=== PATIENT | male | born 1945 | race Caucasian/White ===

== ENCOUNTER 2022-05-11 17:24 | Emergency (ER) | payer MEDICARE, OTHER, SELFPAY ==
[2022-05-11 17:36] VITALS: BP 161/77; PULSE 67; RESP 16; TEMP 36.7; O2SAT 98; BMI 23.8
--- NOTE | 2022-05-11 17:40 | DI.RAD.S_ITS ---
PROCEDURE: XR RIBS LT MIN 3V W CXR1V INDICATIONS: fall hiking, left rib pain TECHNIQUE: 4 views of the left ribs were acquired, along with a single view chest. COMPARISON: None. FINDINGS: Surgical changes and devices: None. Bones and chest wall: No fractures or dislocations. No suspicious bony lesions. Overlying soft tissues appear unremarkable. Lungs and pleura: No pleural effusions or pneumothorax. Lungs appear clear. Mediastinum: Mediastinal contours appear normal. Heart size is normal. IMPRESSION: No obvious displaced left rib fracture is seen. No acute cardiopulmonary pathology. Dictated by: Rickey Rothman M.D. on 05/11/2022 at 17:07 Approved by: Rickey Rothman M.D. on 05/11/2022 at 17:12
--- NOTE | 2022-05-11 17:40 | DI.RAD.S_ITS ---
PROCEDURE: XR WRIST LT MIN 3V INDICATIONS: fall hiking left wrist pain TECHNIQUE: 4 views of the wrist were acquired. COMPARISON: [facility], CR, XR RIBS LT MIN 3V W CXR1V, 05/11/2022, 17:45. FINDINGS: Bones: There is a comminuted mildly impacted fracture of the distal radius, with intra-articular involvement. There is a mildly displaced fracture of the ulnar styloid also seen. Degenerative changes are seen throughout, which are most prominent involving the 1st carpometacarpal joint. Milder degenerative changes are seen elsewhere. Scaphoid view: No navicular fractures are seen. Soft tissues: No suspicious soft tissue calcifications. IMPRESSION: Comminuted intra-articular fracture of the distal radius. Mildly displaced ulnar styloid fracture. Dictated by: Duncan Quiroz M.D. on 05/11/2022 at 18:18 Approved by: Duncan Quiroz M.D. on 05/11/2022 at 18:19
[2022-05-11 21:15] VITALS: O2SAT 98
--- NOTE | 2022-05-11 21:20 | ED.FALL ---
HPI - Fall General Chief Complaint: Fall Stated Complaint: Fall, Lt Wrist and Rib Injury Time Seen by Provider: 05/11/22 21:12 Mode of arrival: Family Vehicle History of Present Illness HPI Narrative: 77-year-old male nonsmoker with noncontributory medical history presents with his in the chief complaint of an accidental, ground level fall resulting in pain to his left wrist and right-sided ribs. He denies any head neck or back pain. His rib pain is worse to palpation with deep breath but he denies any shortness of breath or hemoptysis. He denies any lower extremity injury and states that his left wrist hurts with flexion, extension as well as pronation and supination. He denies any numbness, tingling or weakness. He is activated as a modified trauma given age greater than 65 and suspected injury he states that he was at a local hiking trail and stepped on some uneven ground which caused him to fall over as mentioned Related Data Previous Rx's Medication Instructions Recorded hydrocodone 5 mg-acetaminophen 325 1 tab PO Q4-6H PRN pain #20 tabs 05/11/22 mg tablet Allergies Allergy/AdvReac Type Severity Reaction Status Date / Time codeine Allergy Verified 05/11/22 17:40 Penicillins Allergy Verified 05/11/22 17:40 Review of Systems Review of Systems Narrative: GENERAL: Denies chills, fatigue, malaise, fever, sweats. HEENT: Denies sinus pain, ear pain, sore throat, difficulty swallowing, dizziness. RESPIRATORY: See HPI CARDIOVASCULAR: Denies chest pain, palpitations, orthopnea, edema, GASTROINTESTINAL: Denies nausea, vomiting, abdominal pain, diarrhea, constipation, melena. : Denies dysuria, frequency, incontinence, hematuria, urinary retention. MUSCULOSKELETAL: See HPI SKIN: Denies rash, skin lesions, or other NEUROLOGIC: Denies weakness, headache, numbness, change in speech, confusion, seizures, incoordination. PSYCHIATRIC: No concerning psychosocial issues. 12 point review of systems is negative except for those stated above Patient History Social History Smoking Status: Never smoker Smoking Status: Never smoker alcohol intake frequency: a few times a month Substance Use Type: does not use Exam Narrative Exam Narrative: GENERAL: [77] year old patient appears stated age. Well-developed patient, in mild distress. HEAD: Atraumatic. Normocephalic. EYES: Pupils equal round and reactive. Extraocular motions intact. No scleral icterus. No injection or drainage. ENT: Nose without bleeding, purulent drainage. Throat without erythema, tonsillar hypertrophy or exudate. Airway patent. NECK: Trachea midline. Non tender CARDIOVASCULAR: Regular rate and rhythm without murmurs, gallops, or rubs. Right lower posterior lateral ribs tender to palpate, no subcu emphysema, crepitance, edema or erythema noted RESPIRATORY: Clear to auscultation. Breath sounds equal bilaterally. No wheezes, rales, or rhonchi. GASTROINTESTINAL: Abdomen soft, non-tender, nondistended. EXTREMITIES: Full but painful range of motion of left wrist with minimal swelling. This is closed, isolated and neurovascularly intact BACK: Nontender without deformity or crepitance. No flank tenderness. NEURO: AOx3. SKIN: No rash or erythema of visible areas Initial Vital Signs Initial Vital Signs: Vital Signs Temperature 98.0 F 05/11/22 17:36 Pulse Rate 67 05/11/22 17:36 Respiratory Rate 16 05/11/22 17:36 Blood Pressure 161/77 H 05/11/22 17:36 Pulse Oximetry 98 05/11/22 17:36 Oxygen Delivery Method 05/11/22 17:36 Procedures Orthopedic Splinting/Casting Injury #1: Side: left Upper Extremity Injury Location: wrist Upper Extremity Immobilizer: sling/shoulder immobilizer and sugar tong splint Post splinting neuro exam: intact Post splinting vascular exam: intact Placed by: Nursing Course Orders Ordered: Discontinued Medications Hydrocodone Bitart/Acetaminophen (Hydrocodone/Acet 5/325 Prepack) 1 bottle MISC SEEINSTR ONE Stop: 05/11/22 21:36 Last Admin: 05/11/22 22:19 Dose: 1 bottle Documented By: AT Ondansetron HCl (Ondansetron 4 Mg Odt Prepack) 1 bottle MISC SEEINSTR ONE Stop: 05/11/22 21:36 Last Admin: 05/11/22 22:19 Dose: 1 bottle Documented By: AT Consultations Consultation #1: Discussed with on-call orthopedist, Dr. Walton. She has reviewed the history and images, recommends sugar-tong, sling, pain control, typical return precautions and follow-up in the clinic Vital Signs Vital signs: Vital Signs - 8 hr 05/11/22 17:36 Temperature 98.0 F Pulse Rate 67 Respiratory Rate 16 Blood Pressure 161/77 H Pulse Oximetry 98 Oxygen Delivery Method Room Air Discharge Plan Departure Patient Disposition: Home Clinical Impression: Closed fracture of left distal radius Instructions: DI for Distal Radius Fracture Activity Restrictions/Additional Instructions: *You have been diagnosed with [left distal radius fracture] *What to do: *Please continue to take your regular medications as directed. [x ] New medication prescriptions sent to your pharmacy: [[facility] in [place] ] [ ] New medication written as a paper prescription [x] Tylenol and occasional Motrin for pain *Please follow up with [Anton ] of [facility] in 2-3 days, call for an appointment. Let them know you were seen in the Emergency Department and that we ask that you be seen in follow up. We will electronically transmit a record of today's note if your PCP is in our system *Return to Emergency Department if you should have any new, worsening or concerning symptoms, such as [worsening pain, significant swelling, cold extremities, numbness, tingling, weakness or other bothersome symptoms Splint Care: Keep splint clean and dry. Elevated affected body part to decrease swelling. OK to use ice pack on the affected body part. Use for 15-20 minutes each time, for 5-6x per day. If you develop worsening pain, numbness, tingling, discoloration of the affected body part, loosen the splint by loosening the NAMAN wrap, and either see your doctor for an urgent re-assessment, or return to the Emergency Department. Return to the Emergency Department for any new or worsening symptoms. You have been prescribed a short course of narcotic medications. These are potentially dangerous and addictive medications that should be used carefully. While on these medications you cannot drive or operate heavy machinery. Additionally, you cannot sign legal documents or perform any duties such as this. Many people get constipated on narcotic medications so it would be advisable to discuss stool softeners with the pharmacist when you greens picker your prescription. Please understand that we cannot provide further refills of narcotics or controlled substances through the ED and your pain management will need to be through your Primary Care Provider Prescriptions: New hydrocodone-acetaminophen 5-325 mg tablet 1 tab PO Q4-6H PRN (Reason: pain) Qty: 20 0RF Referrals: Miscellaneous,Doctor, MD [Primary Care Provider] - Visit Report Forms: Patient Portal/API
[2022-05-11 21:21] VITALS: BP 188/88; PULSE 72; O2SAT 99
--- NOTE | 2022-05-11 21:25 | PC.NURSE ---
Swelling to left wrist. Pt reports normal sensation. Cap refill less than 2 seconds and radial pulse palpated.
[2022-05-11 21:30] VITALS: PULSE 74; O2SAT 100
[2022-05-11] MEDS: HYDROCODONE/ACET 5/325 PREPACK 1 BOTTLE MISC (22:19)
[2022-05-11] MEDS: ONDANSETRON 4 MG ODT PREPACK 1 BOTTLE MISC (22:19)
[2022-05-11 22:31] VITALS: BP 165/72; PULSE 60; O2SAT 97
== END 2022-05-11 22:33 | disposition home or self-care (01) ==
PROVIDERS: Emergency Provider Emergency Medicine
DX: S52.502A Unspecified fracture of the lower end of left radius, initial encounter for closed fracture (principal); R07.81 Pleurodynia; W19.XXXA Unspecified fall, initial encounter
CPT/HCPCS: 71101; 73110; 99283

== ENCOUNTER → 2024-03-01 11:38 | Outpatient (CLI) | payer MEDICARE, OTHER, SELFPAY ==
[2024-03-01 13:36] LABS: Magnesium 2.2 mg/dL (1.6-2.3)
[2024-03-01 14:44] LABS: Folate > 20.0 ng/mL (2.76-20.0); Vitamin B12 587 pg/mL (239-931)
== END ==
PROVIDERS: PCP Family Medicine; Referring Provider Physician Assistant; Visit Provider Physician Assistant
DX: Z79.899 Other long term (current) drug therapy (principal)
CPT/HCPCS: 36415; 82607; 82746; 83735

== ENCOUNTER → 2024-08-31 08:52 | Outpatient (CLI) | payer MEDICARE, OTHER, SELFPAY ==
[2024-08-31 10:18] LABS: Add Manual Diff / Slide Review NO; Basophils Absolute Auto 0 /uL (0-100); Basophils Percent Auto 0.4 % (0-2); Eosinophils Absolute Auto 400 /uL (0-450); Eosinophils Percent Auto 7.9 % (2-4); Hematocrit 43.8 % (41-53); Hemoglobin 14.6 g/dL (13.5-17.5); Lymphocytes Absolute Auto 1400 /uL (1100-4500); Lymphocytes Percent Auto 26.1 % (25-40); Mean Corpuscular HGB Conc 33.3 % (30-36); Mean Corpuscular Hemoglobin 30.9 PG (26-34); Mean Corpuscular Volume 92.9 fL (80-100); Monocytes Absolute Auto 500 /uL (0-900); Monocytes Percent Auto 9.8 % (3-14); Neutrophils Absolute Auto 3000 /uL (1500-7000); Neutrophils Percent Auto 55.8 % (50-75); Platelet Count 136 X10^3/uL (150-400); Red Blood Cell Count 4.72 X10^6/uL (4.5-5.9); Red Cell Distribution Width 14.2 % (11.6-14.8); White Blood Cell Count 5.4 X10^3/uL (4.5-11.0)
[2024-08-31 10:49] LABS: Alanine Aminotransferase 22 IU/L (<50); Albumin 4.2 g/dL (3.5-5.0); Albumin Globulin Ratio 1.9 (1.0-2.8); Alkaline Phosphatase 51 U/L (38-126); Aspartate Aminotransferase 28 IU/L (17-59); BUN Creatinine Ratio 22.1 (6-22); Bilirubin Total 0.7 mg/dL (0.2-1.3); Blood Urea Nitrogen 17 mg/dL (9-20); Calcium 9.4 mg/dL (8.4-10.2); Carbon Dioxide 28 mmol/L (22-32); Chloride 106 mmol/L (98-107); Cholesterol 121 mg/dL (140-199); Estimated Glomerular Filt Rate > 60 mL/min (>60); Globulin 2.2 g/dL (1.7-4.1); Glucose 100 mg/dL (80-110); HDL Cholesterol 62 mg/dL (40-60); HEMOLYSIS < 15 (0-50); LDL Cholesterol Calculated 50 mg/dL (<100); Potassium 4.6 mmol/L (3.4-5.1); Sodium 138 mmol/L (137-145); Total Protein 6.4 g/dL (6.3-8.2); Triglycerides 46 mg/dL (35-150)
[2024-08-31 11:19] LABS: Prostate Specific Antigen Scrn 1.18 ng/mL (0.1-4.0)
== END ==
PROVIDERS: PCP Family Medicine; Referring Provider Family Medicine; Visit Provider Family Medicine
DX: Z00.00 Encounter for general adult medical examination without abnormal findings (principal); E78.5 Hyperlipidemia, unspecified; Z12.5 Encounter for screening for malignant neoplasm of prostate; I25.10 Atherosclerotic heart disease of native coronary artery without angina pectoris
CPT/HCPCS: 36415; 80053; 80061; 85025; G0103

== ENCOUNTER → 2025-01-18 08:23 | Outpatient (CLI) | payer MEDICARE, OTHER, SELFPAY ==
[2025-01-18 10:16] LABS: Magnesium 2.1 mg/dL (1.6-2.3)
[2025-01-18 11:20] LABS: Folate > 20.0 ng/mL (2.76-20.0); Vitamin B12 605 pg/mL (239-931)
== END ==
PROVIDERS: PCP Family Medicine; Referring Provider Physician Assistant; Visit Provider Physician Assistant
DX: Z79.899 Other long term (current) drug therapy (principal)
CPT/HCPCS: 36415; 82607; 82746; 83735

== ENCOUNTER → 2025-03-23 10:36 | Outpatient (CLI) | payer MEDICARE, OTHER, SELFPAY ==
[2025-03-23 11:41] LABS: Hemoglobin A1C% w Est Avg Glu 5.2 % (4.0-6.0)
== END ==
PROVIDERS: PCP Family Medicine; Referring Provider Internal Medicine; Visit Provider Internal Medicine
DX: Z86.73 Personal history of transient ischemic attack (TIA), and cerebral infarction without residual deficits (principal)
CPT/HCPCS: 36415; 83036

== ENCOUNTER → 2025-04-10 06:51 | Outpatient (CLI) | payer MEDICARE, OTHER, SELFPAY ==
--- NOTE | 2025-04-10 06:53 | DI.US.S_ITS ---
PROCEDURE: US CAROTID DOPPLER BI INDICATIONS: hx of stroke TECHNIQUE: Color and pulse Doppler interrogation was performed of both carotid systems, with image documentation and velocity measurements. COMPARISON: None. FINDINGS: Stenosis calculations are based on SRU (Society of Radiologists in Ultrasound) criteria. Right side: Brachial blood pressure: 156/71 mm Hg. Common carotid artery peak systolic velocity: 54 cm/sec. Internal carotid artery peak systolic velocity: 98 cm/sec. Internal carotid artery end diastolic velocity: 30 cm/sec. External carotid artery peak systolic velocity: 62 cm/sec. ICA/CCA peak systolic ratio: 1.8. Escobar scale imaging description: Moderate plaque Percent internal carotid artery stenosis: Less than 50% stenosis. Vertebral artery: Flow direction is antegrade. Left side: Brachial blood pressure: 165/87 mm Hg. Common carotid artery peak systolic velocity: 69 cm/sec. Internal carotid artery peak systolic velocity: 83 cm/sec. Internal carotid artery end diastolic velocity: 23 cm/sec. External carotid artery peak systolic velocity: 69 cm/sec. ICA/CCA peak systolic ratio: 1.2. Escobar scale imaging description: Mild plaque Percent internal carotid artery stenosis: Less than 50% stenosis. . Vertebral artery: Flow direction is antegrade. IMPRESSION: 1. Right ICA: Less than 50 % stenosis. 2. Left ICA: Less than 50 % stenosis. 3. Antegrade flow in the bilateral vertebral arteries. Dictated by: Thomas Glasgow M.D. on 04/10/2025 at 13:24 Approved by: Thomas Glasgow M.D. on 04/10/2025 at 13:26
--- NOTE | 2025-04-10 06:53 | DI.ECHO.S_ITS ---
[place] +---------+ [facility] : : [address] : [place] : : [id number] : : Phone: [phone] Echocardiogram Report + + :Name: MATT SHI V Study Date: 04/10/2025 Height: 76 in : :Hospital ReadingLocation: Weight: 198 lb : : Gender: Male BSA: 2.2 m2 : :: 1945 Age: 80 yrs BP: 165/67 mmHg: :Reason For Study: HISTORY OF STROKE : :Ordering Physician: JOSE SIMS : :D.O. Performed By: Demetria Ibanez : :Referring: JOSE SIMS D.O. : + + Interpretation Summary Left ventricular ejection fraction is estimated to be .55. There is mild mitral regurgitation. There is mild to moderate aortic regurgitation. This is unchanged compared to the previous study. There is mild tricuspid regurgitation. The right ventricular systolic pressure is estimated to be at least 40 mmHg based on an estimated right atrial pressure of 8 mm Hg. There is no Doppler evidence for an interatrial shunt. Procedure: A two-dimensional transthoracic echocardiogram with color flow and Doppler was performed. The study quality was technically adequate. Comparison is made with the echocardiogram of 11/15/2023. The patient was in sinus bradycardia with heart rates between 48-54 bpm during the exam. Left Ventricle: The left ventricle is normal in size and wall thickness. Left ventricular ejection fraction is estimated to be .55. Left ventricular wall motion is normal. Diastolic parameters suggest a pseudonormalization pattern, consistent with probable elevated filling pressures. Right Ventricle: The right ventricle is normal in size and function. Atria: The left atrium is borderline dilated. The right atrium is moderately dilated. There is no Doppler evidence for an interatrial shunt. Mitral Valve: The mitral valve leaflets appear to open well. There is mild mitral regurgitation. Aortic Valve: The aortic valve is trileaflet. The aortic valve opens well. There is no aortic valve stenosis. There is mild to moderate aortic regurgitation. This is unchanged compared to the previous study. Tricuspid Valve: The tricuspid valve leaflets are thin and pliable. There is mild tricuspid regurgitation. The right ventricular systolic pressure is estimated to be at least 40 mmHg based on an estimated right atrial pressure of 8 mm Hg. Pulmonic Valve: The pulmonic valve leaflets are thin and pliable; valve motion is normal. There is trace pulmonic regurgitation. Great Vessels: The aortic root is normal size. The ascending aorta is at the upper limits of normal in size. The IVC is dilated (diameter is greater than 2.1 cm) yet it collapses greater than 50% with a sniff. This suggests a right atrial pressure of 8 mm Hg. Pericardium/ Pleura There is no pericardial effusion. There is no pleural effusion. MMode/2D Measurements & Calculations LVIDd: 4.7 cm LVOT diam: 2.2 cm LVIDs: 3.3 cm Ao root diam: 3.1 cm FS: 28.9 % asc Aorta Diam: 3.7 cm IVSd: 0.55 cm Ao Arch Diam (Prox Trans): 3.4 cm LVPWd: 0.75 cm LV winters. diameter/BSA (cm/m^2): 2.1 LV sys. diameter/BSA (cm/m^2): 1.5 LA A2 area: 22.7 cm2 RA long axis: 6.6 cm LA A4 area: 23.6 cm2 RA area: 26.6 cm2 LA length (vol): 6.1 cm RA vol: 91.0 ml LA vol: 73.9 ml RA : 41.2 ml/m2 LA vol index: 33.5 ml/m2 IVC diam: 2.5 cm RVD1 (basal): 3.9 cm RVD2 (mid): 3.9 cm TAPSE: 2.1 cm Doppler Measurements & Calculations Ao V2 max: 153.7 cm/sec LVOT Max Brandon: 99.9 cm/sec Ao V2 mean: 101.5 cm/sec LV V1 max P.1 mmHg Ao max P.5 mmHg LV V1 VTI: 26.7 cm Ao mean P.7 mmHg ANA(I,D): 2.6 cm2 Ao V2 VTI: 40.0 cm ANA(V,D): 2.5 cm2 sev ratio: 0.67 ANA indexed to BSA (cm^2/m^2): 1.2 AI P1/2t: 621.4 msec AI dec slope: 234.2 cm/sec2 MV E max brandon: 82.1 cm/sec TR max brandon: 281.4 cm/sec MV A max brandon: 63.1 cm/sec TR max P.7 mmHg MV E/A: 1.3 PA V2 max: 83.9 cm/sec Med Peak E' Brandon: 5.1 cm/sec PA V2 mean: 58.4 cm/sec E/E' med: 16.1 PA mean P.6 mmHg Lat Peak E' Brandon: 7.0 cm/sec PA pr(Accel): 17.3 mmHg E/E' lat: 11.6 E/e' average: 13.9 MV dec time: 0.22 sec SV(LVOT): 103.5 ml Reading Physician:03:12 PM
== END ==
PROVIDERS: PCP Family Medicine; Referring Provider Internal Medicine; Visit Provider Internal Medicine
DX: I65.23 Occlusion and stenosis of bilateral carotid arteries (principal); I08.3 Combined rheumatic disorders of mitral, aortic and tricuspid valves; Z86.73 Personal history of transient ischemic attack (TIA), and cerebral infarction without residual deficits
CPT/HCPCS: 93306; 93880